=== PATIENT | male | born 1975 | race Caucasian/White ===

== ENCOUNTER 2016-10-14 20:34 | Emergency (ER) ==
[2016-10-14] MEDS ORDERED: ASPIRIN PO STA (20:48)
--- NOTE | 2016-10-14 20:51 | PROVIDER DOCUMENTATION ---
Addendum entered and electronically signed by Velma Beltran Scribe 10/14/16 23:56: Original Note: HPI-Chest Pain <Erika Zhang - Last Filed: 10/14/16 20:51> - General Source: patient - History of Present Illness-CP Location: reports: epigastric Chest Pain Radiation: reports: back Quality of Pain: reports: tightness Severity in ED: mild, moderate Onset/Duration: this afternoon Timing: still present Context/Activities at Onset: reports: light activity, eating Modifying Factors: improves with: nothing Associated Symptoms: reports: back pain. denies: nausea, shortness of breath, swelling/lump in chest Nitro Today/Relief: no nitro taken today Aspirin Treatment Today: no aspirin today <Velma Beltran - Last Filed: 10/14/16 23:34> <Gregg Cruz - Last Filed: 10/14/16 23:42> - General Chief Complaint: Chest Pain Stated Complaint: CHEST PAIN Time Seen by Provider: 10/14/16 20:50 Allergies/Adverse Reactions: Patient Allergies Allergy/AdvReac Type Severity Reaction Status Date / Time codeine Allergy RASH Verified 10/14/16 20:45 Penicillins Allergy RASH Verified 10/14/16 20:45 Home Medications: Home Medication List Medication Instructions Recorded Confirmed Last Taken Type Glyburide/Metformin HCl 500 mg PO BID 01/21/15 03/08/15 10/14/16 20:44 History [Glyburid-Metformin 1.25-250 mg] LISINOpril [Prinivil] 10 mg PO DAILY 01/21/15 03/08/15 03/08/15 04:45 History 10 ATORVAstatin [Lipitor] 80 mg PO DAILY 10/14/16 10/14/16 Unknown History Dapagliflozin/Metformin HCl 1 each PO DAILY #30 tab.bp.24h 10/14/16 Unknown Rx [Xigduo Xr 10 mg-500 mg Tablet] - History of Present Illness-CP Nature of Presenting Problem: 38 Y/O M presents to ED with Chest Pain. Pt has a hx of HTN. Pt states that he was sitting down earlier today eating a pork sandwich, went home and felt this pressure in his epigastric area states that it radiated into his mid upper back. Denies any SOB, N ,V, and any pain on movement. Pt has a family hx of HTN. Pt states no pain currently in ED, was worried stated to come to ED. ( Velma Beltran) Review of Systems - Adult - REVIEW OF SYSTEMS - ADULT Constitutional: denies: chills Eyes: reports: no symptoms reported Ears, Nose, Mouth & Throat: reports: no symptoms reported Cardiovascular: reports: chest pain Respiratory: denies: shortness of breath Gastrointestinal: denies: abdominal pain, diarrhea, nausea, vomiting Genitourinary: reports: no symptoms reported Musculoskeletal: reports: back pain Integumentary: reports: no symptoms reported Neurological: denies: dizziness/vertigo, headache/migraines Psychiatric: reports: no symptoms reported Endocrine: reports: no symptoms reported Hematologic/Lymphatic: reports: no symptoms reported Allergic/Immunologic: reports: no symptoms reported All Other Systems: Reviewed and Negative <Velma Beltran - Last Filed: 10/14/16 23:34> Past History - Adult - PAST MEDICAL HISTORY-ADULT Cardiovascular: reports: HTN Endocrine/Immune: reports: Diabetes - PRIOR SURGERIES/PROCEDURES Surgical/Procedure History: reports: none <Erika Zhang - Last Filed: 10/14/16 20:51> - PAST MEDICAL HISTORY-ADULT Review of Records: reports: Old Records Reviewed, Nursing Assessment Review, Medications Reviewed, Social history reviewed & non-contributory. - SOCIAL HISTORY Smoking: non-smoker Substance Use: none/never Alcohol Use Frequency: rarely Living Situation: family <Velma Beltran - Last Filed: 10/14/16 23:34> Physical Exam-General - CONSTITUTIONAL General Appearance: appears well, alert, no apparent distress - EYES Eyes: PERRL/EOMI, pink conjunctivae, fundi clear, no AV nicking - HEAD, EARS, NOSE, MOUTH & THROAT HENMT: normocephalic/atraumatic, moist mucous membranes, normal ENT inspection, TMs normal - NECK Neck: non-tender, full range of motion, supple, normal inspection - RESPIRATORY Respiratory: chest non-tender, lungs clear, normal breath sounds - CARDIOVASCULAR Cardiovascular: tachycardia - GASTROINTESTINAL (ABDOMEN) Abdominal Exam: normal bowel sounds, non tender, soft - LYMPHATIC Lymphatic: no adenopathy - MUSCULOSKELETAL Back Exam: normal inspection, no CVA tenderness, no vertebral tenderness Extremity: normal range of motion, non-tender, normal gait - SKIN Integumentary: normal color, normal turgor, warm/dry - NEUROLOGIC Neurologic: [employer] II-XII nml as tested, grossly normal - PSYCHIATRIC Psych/Mental Status: normal mood/affect, normal thought content, normal thought process, oriented x 3 <Velma Beltran - Last Filed: 10/14/16 23:34> Progress <Erika Zhang - Last Filed: 10/14/16 20:51> - EKG 1 Time of EKG reading by physician:: 20:35 EKG Read and Signed by:: Gregg Cruz EKG Interpretation (*Must complete 3 of following elements*): Abnormal Rate: 110 Rhythm: Sinus Tachycardia Comments: Septal Infract, Abnormal ECG 2 Time of EKG reading by physician:: 22:39 EKG Read and Signed by:: Gregg Cruz EKG Interpretation (*Must complete 3 of following elements*): Normal Rate: 93 Rhythm: NSR Comments: Abnormal ECG, Nonspecific ST abnormality - XRAY 1 XRAY Study: Chest Impression: Normal XRAY Interpretation: NAD <Velma Beltran - Last Filed: 10/14/16 23:34> <Gregg Cruz - Last Filed: 10/14/16 23:42> - PLAN OF CARE/RESULTS Progress/Plan/Lab Results: Laboratory Tests 10/14/16 10/14/16 10/14/16 20:35 20:35 20:35 WBC RBC Hgb Hct MCV MCH MCHC RDW Std Deviation Plt Count MPV Immature Gran % (Auto) Neut % (Auto) Lymph % (Auto) Meagher % (Auto) Eos % (Auto) Baso % (Auto) Immature Gran # (Auto) Neut # (Auto) Lymph # (Auto) Meagher # (Auto) Eos # (Auto) Baso # (Auto) D-Dimer Sodium 135 L Potassium 3.9 Chloride 97 L Carbon Dioxide 24 L Anion Gap 13 BUN 12 Creatinine 0.9 Estimated GFR/1.73 m2 > 60 BUN/Creatinine Ratio 13 Glucose 408 H* Calculated Osmolality 287 Calcium 8.8 Total Bilirubin 0.40 AST 22 ALT 36 Alkaline Phosphatase 138 H Creatine Kinase 69 Troponin T < 0.010 Vwu-M-Fypctcqfuvd Pept < 5 L Total Protein 7.3 Albumin 4.3 Globulin 3.0 Albumin/Globulin Ratio 1.0 LDL Cholesterol Direct 80 Digoxin 0.3 L 03/13/17 03/13/17 03/13/17 20:35 20:35 22:45 WBC 8.05 RBC 5.43 Hgb 16.1 Hct 47.1 MCV 86.7 MCH 29.7 MCHC 34.2 RDW Std Deviation 12.7 Plt Count 245 MPV 11.4 H Immature Gran % (Auto) 0.2 Neut % (Auto) 64.0 Lymph % (Auto) 27.8 Meagher % (Auto) 6.8 Eos % (Auto) 1.0 Baso % (Auto) 0.2 Immature Gran # (Auto) 0.02 Neut # (Auto) 5.14 Lymph # (Auto) 2.24 Meagher # (Auto) 0.55 Eos # (Auto) 0.08 Baso # (Auto) 0.02 D-Dimer < 0.22 L Sodium Potassium Chloride Carbon Dioxide Anion Gap BUN Creatinine Estimated GFR/1.73 m2 BUN/Creatinine Ratio Glucose Calculated Osmolality Calcium Total Bilirubin AST ALT Alkaline Phosphatase Creatine Kinase 66 Troponin T Ric-E-Uoxkdjwijmz Pept Total Protein Albumin Globulin Albumin/Globulin Ratio LDL Cholesterol Direct Digoxin 10/14/16 22:45 WBC RBC Hgb Hct MCV MCH MCHC RDW Std Deviation Plt Count MPV Immature Gran % (Auto) Neut % (Auto) Lymph % (Auto) Meagher % (Auto) Eos % (Auto) Baso % (Auto) Immature Gran # (Auto) Neut # (Auto) Lymph # (Auto) Meagher # (Auto) Eos # (Auto) Baso # (Auto) D-Dimer Sodium Potassium Chloride Carbon Dioxide Anion Gap BUN Creatinine Estimated GFR/1.73 m2 BUN/Creatinine Ratio Glucose Calculated Osmolality Calcium Total Bilirubin AST ALT Alkaline Phosphatase Creatine Kinase Troponin T < 0.010 Xrr-K-Gvyznyfhqzb Pept Total Protein Albumin Globulin Albumin/Globulin Ratio LDL Cholesterol Direct Digoxin Orders Category Date Time Status CHEST-2 VIEWS [RAD] Stat Exams 10/14/16 20:48 Taken CBC WITH ELECTRONIC DIFF [HEME] Stat Lab 10/14/16 20:35 Completed CK PROFILE [SP CHEM] Stat Lab 10/14/16 20:35 Completed CK PROFILE [SP CHEM] Stat Lab 10/14/16 22:45 Completed COMPREHENSIVE METABOLIC PANEL [CHEM] Stat Lab 10/14/16 20:[address] D-DIMER [address] [COAG] Stat Lab 10/14/16 20:35 Completed DIGOXIN [TDM] Stat Lab 10/14/16 20:35 Completed DIRECT LDL [LIPIDS] Stat Lab 10/14/16 20:35 Completed PRO B-NATRIURETIC PEPTIDE Stat Lab 10/14/16 20:35 Completed TROPONIN T Stat Lab 10/14/16 20:35 Completed TROPONIN T Stat Lab 10/14/16 22:45 Completed Aspirin Med 10/14/16 20:48 Discontinued 325 mg PO STAT STA EKG [EKG] Stat Ther 10/14/16 20:48 Ordered EKG [EKG] Stat Ther 10/14/16 22:33 Ordered Vital Signs - 24 hr 10/14/16 10/14/16 10/14/16 20:37 20:40 22:24 Temperature 97.7 F Pulse Rate 120 H 110 H 98 H Respiratory 16 13 16 Rate Blood Pressure 151/107 135/92 O2 Sat by Pulse 99 96 Oximetry (Velma Beltran) Departure <Erika Zhang - Last Filed: 10/14/16 20:51> - Departure Time of Disposition Order: 23:35 <Velma Beltran - Last Filed: 10/14/16 23:34> - Departure Time of Disposition Order: 23:40 Certified Medical Emergency: Emergent <Gregg Cruz - Last Filed: 10/14/16 23:42> - Departure DIAGNOSIS: Atypical chest pain, Diabetes type 2, uncontrolled, HTN (hypertension) Disposition: HOME 01 Additional Instructions: ED Follow Up Instructions: You have been treated by a care provider in the Emergency Department. These instructions are being provided to you so you can have an understanding of how to care for yourself upon discharge. Upon discharge from the Emergency Department, you are responsible for making arrangements for follow-up care by a physician of your choice. Take all prescribed medications as directed. Return to the Emergency Department immediately for any new or worsening symptoms. You may call the Physician Referral phone number at [phone] to obtain a list of Physicians who are taking new patients. Prescriptions: Dapagliflozin/Metformin HCl [Xigduo Xr 10 mg-500 mg Tablet] 1 each PO DAILY #30 tab.bp.24h Referrals: Adama Clay MD [Primary Care Provider] - Attestation - Physician/ MARIO Attestation Patient care was provided by Advanced Practice Provider:: Yes Advanced Practice Provider:: Erika Zhang Advanced Practice Provider documentation review:: The Mid-level provider documentation, treatment plan and medical decision making was reviewed by the physician who agrees with all treatment and medical decision making by the MLP. <Erika Zhang - Last Filed: 10/14/16 20:51> - Scribe Verification/Attestation Scribe:: Velma Beltran Acting as Scribe for:: Gregg Cruz Scribe documention review:: This chart was documented by a scribe and accurately reflects the service the provider performed and the decisions made by the provider. <Velma Beltran - Last Filed: 10/14/16 23:34> Physician Attestation
[2016-10-14 20:55] LABS: MANUAL DIFF NEEDED? NO
[2016-10-14 20:57] LABS: BASO% 0.2 % (0.0-0.8); EOS# 0.08 X1000 (0.0-0.7); HEMATOCRIT 47.1 % (42.0-52.0); HEMOGLOBIN 16.1 g/dL (14.0-18.0); IMM GRAN# 0.02 X1000 (0.0-0.04); IMM GRAN% 0.2 % (0.0-0.5); LYMPH# 2.24 X1000 (1.2-3.4); LYMPH% 27.8 % (20.5-51.1); MCH 29.7 PG (27-31); MCHC 34.2 g/dL (33-37); MCV 86.7 FL (81-99); MONO# 0.55 X1000 (0.11-0.59); MONO% 6.8 % (1.7-9.3); MPV 11.4 FL (7.4-10.4); PLT 245 X1000 (130-400); RBC 5.43 XMIL (4.7-6.1)
[2016-10-14 21:17] LABS: AGAP 13; ALBUMIN 4.3 g/dL (3.5-5.0); ALKALINE PHOSPHATASE 138 U/L (32-122); BUN 12 mg/dL (8-22); CALCIUM 8.8 mg/dL (8.8-10.2); CHLORIDE 97 mmol/L (98-107); CK PROFILE 69 U/L (24-204); COSMO 287; DIGOXIN 0.3 ng/mL (0.9-2.0); DIRECT LDL 80 mg/dL; GOT 22 U/L (10-34); GPT 36 U/L (10-44); POTASSIUM 3.9 mmol/L (3.5-5.1); SODIUM 135 mmol/L (136-145); TCO2 24 mmol/L (25-35); TOTAL PROTEIN 7.3 g/dL (6.3-8.3)
[2016-10-15] VITALS: BP 124/87
--- NOTE | 2016-10-15 01:05 | EKG Report ---
Test Performed on : 10/14/2016 10:39:21 PM Test Reason : cp Blood Pressure : / mmHG Vent. Rate : 093 BPM Atrial Rate : 093 BPM P-R Int : 168 ms QRS Dur : 076 ms QT Int : 346 ms P-R-T Axes : 045 034 045 degrees QTc Int : 430 ms Normal sinus rhythm. Nonspecific ST abnormality Abnormal ECG When compared with ECG of 14-OCT-2016 20:35, (Unconfirmed) No significant change was found Unconfirmed Result
--- NOTE | 2016-10-15 01:06 | EKG Report ---
Test Performed on : 10/14/2016 8:35:22 PM Test Reason : chest pain Blood Pressure : / mmHG Vent. Rate : 110 BPM Atrial Rate : 110 BPM P-R Int : 166 ms QRS Dur : 068 ms QT Int : 322 ms P-R-T Axes : 061 049 055 degrees QTc Int : 435 ms Sinus tachycardia. Septal infarct , age undetermined Abnormal ECG When compared with ECG of 07-MAR-2015 13:04, No significant change was found Unconfirmed Result
--- NOTE | 2016-10-15 06:15 | Diag Imaging Result Document ---
PROCEDURE NAME: CHEST-2 VIEWS - 10/14/2016 FRONTAL AND LATERAL CHEST, TWO VIEWS: COMPARISON: No comparison films. FINDINGS: The lungs are well expanded. The heart is not enlarged. The vessels are not distended. No pneumonia. No pleural effusions. No free air beneath the diaphragm. IMPRESSION: No acute abnormality.
== END 2016-10-15 | disposition home or self-care (01) ==
LOC: P.ED 20:34
DX: R07.89 Other chest pain (principal); E11.9 Type 2 diabetes mellitus without complications; I10 Essential (primary) hypertension; R94.31 Abnormal electrocardiogram [ECG] [EKG]; R10.13 Epigastric pain; M54.6 Pain in thoracic spine; Z79.899 Other long term (current) drug therapy; Z82.49 Family history of ischemic heart disease and other diseases of the circulatory system
CPT/HCPCS: 71020; 80053; 80162; 82550; 83721; 83880; 84484; 85025; 85379; 93005; 99284